=== PATIENT | male | born 1985 | race American Indian/Alaskan Native ===

== ENCOUNTER 2017-07-09 12:46 | Inpatient (IN) | payer OTHER ==
--- NOTE | 2017-07-09 13:04 | Cat Scan Report ---
CT HEAD WITHOUT CONTRAST: HISTORY: Neurological deficit. TECHNIQUE: Sequential 2.5mm CT images. COMPARISON: none. FINDINGS: Cerebral Parenchyma: Within normal limits. Cerebellum: Within normal limits. Brainstem: Within normal limits. Ventricles: Normal. Sella: Normal. Extra-axial spaces: Normal. Basal Cisterns: Normal. Intracranial Hemorrhage: None. Midline Shift: None. Calvarium: Normal. Sinuses: There is moderate mucosal thickening in the left maxillary sinus. The remaining visualized sinuses are adequately aerated. Mastoid Air Cells: Normal. Visualized Orbits: Normal. IMPRESSION: Cranial CT scan within normal limits. Chronic left maxillary sinusitis. These findings were discussed with Dr. Barbour in the emergency department at 1255 hrs.
[2017-07-09 13:15] LABS: Basophils % (Auto) 0.4 % (0.0-1.8); Eosinophils % (Auto) 0.1 % (0.0-4.3); Hematocrit 49.6 % (35.5-45.6); Lymphocytes # (Auto) 0.9 K/mm3 (1.2-5.4); Lymphocytes % (Auto) 10.1 % (13.4-35.0); Mean Corpuscular HGB Conc 34 % (32-34); Mean Corpuscular Hemoglobin 29 pg (28-32); Mean Corpuscular Volume 85 fl (84-94); Monocytes # (Auto) 0.5 K/mm3 (0.0-0.8); Monocytes % (Auto) 6.1 % (0.0-7.3); Platelet Count 265 K/mm3 (140-440); Red Blood Count 5.83 M/mm3 (3.65-5.03); Red Cell Distribution Width 13.8 % (13.2-15.2)
[2017-07-09 13:21] LABS: INR 0.96 (0.87-1.13)
[2017-07-09 13:25] LABS: BUN/Creatinine Ratio 11; Blood Urea Nitrogen 11 mg/dL (9-20); Calcium 9.6 mg/dL (8.4-10.2); Hemolysis Index 41
[2017-07-09] MEDS ORDERED: ZOFRAN ONE (13:26)
[2017-07-09] MEDS ORDERED: ZOFRAN IV ONE (13:30)
--- NOTE | 2017-07-09 13:43 | Emergency Department Report ---
HPI - General Chief Complaint: Neuro Symptoms/Deficit Time Seen by Provider: 07/09/17 12:55 - HPI HPI: The patient is a 31-year-old male with history of hypertension, presents for evaluation of strokelike symptoms. The patient reports onset of left-sided weakness at 6 AM this morning when he awoke to take his child to school, 6 hours and 30 minutes prior to arrival to this emergency department. He states that his weakness has been constant and severe since onset, and associated with headache, moderate to severe, aching in quality, also constant for 6 hours. He admits to some mild paresthesia in the left upper extremity and left leg. The patient denies fever, head injury, neck pain, neck stiffness, blurry vision or hearing changes, smell or taste changes, facial drooping, slurred speech, seizure-like activity, urine or bowel incontinence or retention, or other focal neurological deficit. ED Past Medical Hx - Past Medical History Previous Medical History?: Yes Hx Hypertension: Yes - Surgical History Past Surgical History?: No Additional Surgical History: tonsilectomy - Social History Smoking Status: Never Smoker Substance Use Type: Alcohol - Medications Home Medications: Home Medications Medication Instructions Recorded Confirmed Last Taken Type No Known Home Medications [No 07/09/17 07/09/17 Unknown History Reported Home Medications] ED Review of Systems ROS: Stated complaint: POSS CVA Other details as noted in HPI Constitutional: denies: fever ENT: denies: throat or neck pain Respiratory: denies: cough, shortness of breath Cardiovascular: denies: chest pain Endocrine: denies unexplained weight loss or gain Gastrointestinal: denies: abdominal pain, nausea Genitourinary: denies: dysuria Musculoskeletal: denies: leg swelling Skin: denies: rash Neurological: Reports lateralizing weakness, paresthesia, and headache Hematological/Lymphatic: denies: easy bleeding or easy bruising Psych: denies sadness or hopelessness Physical Exam - Physical Exam Vital Signs: Vital Signs 07/09/17 07/09/17 07/09/17 12:57 13:01 13:13 Temperature 98.9 F Pulse Rate 97 H 103 H Respiratory 16 Rate Blood Pressure 170/65 170/65 O2 Sat by Pulse 100 99 99 Oximetry 07/09/17 13:15 Temperature Pulse Rate 109 H Respiratory 15 Rate Blood Pressure 170/65 O2 Sat by Pulse 97 Oximetry Physical Exam: General: well-nourished, well-developed, no acute distress Head: Normocephalic, atraumatic Eyes: normal scleral, PERRL, EOM intact ENT: Mucous membranes are pink and moist Neck: trachea midline, neck supple, No neck stiffness, no cervical adenopathy Respiratory: Breath sounds equal bilaterally, no wheezing, rales, or rhonchi Cardio: S1 and S2 present, no murmurs, rubs, gallops, capillary refill is brisk Abdomen: Normoactive bowel sounds, soft abdomen, no rigidity, no guarding or rebound tenderness Chest WALL/Back: No tenderness to palpation of the chest wall, no CVA tenderness with percussion Musc: No pitting edema Skin: No rash Neuro: alert oriented x4, normal cognition, speech normal, no facial drooping, no uvula or tongue deviation on protrusion, no deficit with rotation of neck or shoulder shrug, 1+ pronator drift present to the left arm and leg, 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 week and compared to the right, no obvious gross sensation deficit to crude touch, 2+ symmetric reflexes on DTR testing, no coordination deficit with [id number]-[id number] or atgw-du-[id number] testing, Babinski downgoing, romberg negative, patient able to to ambulate without abnormal gait Psych: Normal affect ED Course Vital Signs 07/09/17 07/09/17 07/09/17 12:57 13:01 13:13 Temperature 98.9 F Pulse Rate 97 H 103 H Respiratory 16 Rate Blood Pressure 170/65 170/65 O2 Sat by Pulse 100 99 99 Oximetry 07/09/17 13:15 Temperature Pulse Rate 109 H Respiratory 15 Rate Blood Pressure 170/65 O2 Sat by Pulse 97 Oximetry ED Medical Decision Making - Lab Data Result diagrams: 07/09/17 13:03 07/09/17 13:03 - Medical Decision Making The patient was seen and examined by myself. The patient is placed on a cardiac specialist and continuous pulse ox. On initial evaluation, the patient was found to be in no distress. Evaluation orders were placed. As patient is greater than 6 hours since onset of symptoms, he is not a TPA candidate. The on -call telemetry neurologist Dr. Hartmann evaluated the patient. He agreed that the patient is not a TPA candidate. CTA of the head and neck were obtained and were negative for proximal thrombus potentially amendable to mechanical removal. The on-call neurologist and [facility] was contacted. Dr. Gutiérrez agreed that the patient was not a candidate for mechanical removal. The patient was given aspirin for treatment of his acute stroke. The on-call hospitalist service was contacted. They agreed to admit the patient for further treatment and close monitoring. The ED admit order was placed. The patient was admitted in guarded condition. Critical care attestation.: If time is entered above; I have spent that time in minutes in the direct care of this critically ill patient, excluding procedure time. ED Disposition Clinical Impression: Hypertensive urgency, Dehydration, Acute non intractable tension-type headache CVA (cerebral vascular accident) Qualifiers: CVA mechanism: unspecified Qualified Code(s): I63.9 - Cerebral infarction, unspecified Disposition: -09 OP ADMIT IP TO THIS HOSP Is pt being admited?: Yes Does the pt Need Aspirin: Yes Condition: Serious Time of Disposition: 14:54 - Assessment Assessment Interval: Baseline - Level of Consciousness 1a. Level of Consciousness: alert - LOC Questions 1b. LOC Questions: answers correctly - LOC Command 1c. LOC Commands: performs tasks correctly - Best Gaze 2. Best Gaze: normal - Visual 3. Visual: partial hemianopia - Facial Palsy 4. Facial Palsy: normal symmetrical movement - Motor Arm 5b. Motor Arm Right: no drift 5a. Motor Arm Left: drift - Motor Leg 6a. Motor Leg Left: drift 6b. Motor Leg Right: no drift - Limb Ataxia 7. Limb Ataxia: present 2 limbs - Sensory 8. Sensory: mild/moderate sensory loss - Best Language 9. Best Language: no aphasia - Dysarthria 10. Dysarthria: normal - Extinction and Inattention 11. Extinction/Inattention: visual/tactile inattention - Scoring Total Score: 7 Stroke Severity: Moderate Stroke
[2017-07-09] MEDS ORDERED: BABY ASPIRIN PO ONE (14:51)
[2017-07-09] MEDS ORDERED: NACL 0.9% 500 ML 500 ML IV ONE (14:52)
[2017-07-09] MEDS ORDERED: APRESOLINE IV ONE (14:52)
[2017-07-09] MEDS ORDERED: SODIUM CHLORIDE FLUSH SYRINGE 10 ML IV PRN (15:12)
[2017-07-09] MEDS ORDERED: DULCOLAX PR PRN (15:12)
[2017-07-09] MEDS ORDERED: MILK OF MAGNESIA PO PRN (15:12)
[2017-07-09] MEDS ORDERED: ZOFRAN IV PRN (15:12)
[2017-07-09] MEDS ORDERED: TYLENOL PO PRN (15:12)
[2017-07-09] MEDS ORDERED: PHENERGAN PR PRN (15:12)
[2017-07-09] MEDS ORDERED: REGLAN PO PRN (15:12)
--- NOTE | 2017-07-09 15:12 | History and Physical Report ---
History of Present Illness Chief complaint: confused, cant move his left side History of present illness: 31 YO Male with HTN presents to ED for evaluation. Pt is mildly confused, but is able to provide history. Pt states that he was in his usual state of health at bedsime which was around 2200hrs, but upon waking this morning around [id number] he experienced Left sided weakness, and inablilty to move his left arm and leg. Pt states that his symptoms have persisted since onset. Pt also acknowledges Headache, which is moderate to severe in nature. The patient denies fever, Chills, CP, Palpitations, NVE, Trauma, neck pain, neck stiffness, blurry vision or hearing changes, smell or taste changes, unintentional weight loss, night sweats, productive cough, or recent ill contacts. Pt seen and evaluated in ED and found to have symptoms of acute stroke. Pt admitted to telemetry. Pt mother at bedside. Past History Past Medical History: hypertension Past Surgical History: tonsillectomy Social history: single, lives with family, smoking. denies: alcohol abuse, prescription drug abuse, IV drug use Family history: hypertension Medications and Allergies Allergies Allergy/AdvReac Type Severity Reaction Status Date / Time No Known Allergies Allergy Unverified 01/21/15 11:24 Home Medications Medication Instructions Recorded Confirmed Last Taken Type No Known Home Medications [No 07/09/17 07/09/17 Unknown History Reported Home Medications] Active Meds: Active Medications Sodium Chloride (Nacl 0.9% 500 Ml) 500 mls @ 999 mls/hr IV ONCE ONE Stop: 07/09/17 15:22 Review of Systems Constitutional: no weight loss, no weight gain, no fever, no chills Ears, nose, mouth and throat: no ear pain, no ear discharge, no tinnitis, no decreased hearing, no nose pain, no nasal congestion, no nasal discharge Cardiovascular: no chest pain, no orthopnea, no palpitations, no rapid/ irregular heart beat, no edema, no syncope, no lightheadedness Respiratory: no cough, no cough with sputum, no excessive sputum, no hemoptysis , no shortness of breath Gastrointestinal: no nausea, no vomiting, no diarrhea, no constipation, no change in bowel habits Genitourinary Male: no dysuria, no hematuria, no flank pain, no discharge, no urinary frequency, no urinary hesitancy Rectal: no pain, no incontinence, no bleeding Musculoskeletal: no neck stiffness, no neck pain, no shooting arm pain, no arm numbness/tingling, no low back pain, no shooting leg pain Integumentary: no rash, no pruritis, no redness, no sores, no wounds, no jaundice Neurological: weakness, numbness, headaches, confusion, no head injury, no transient paralysis, no paralysis, no parathesias, no tingling, no seizures, no convulsions, no change in speech, no gait dysfunction Psychiatric: no anxiety, no memory loss, no change in sleep habits, no sleep disturbances, no insomnia, no hypersomnia, no change in appetite Endocrine: no cold intolerance, no heat intolerance, no polyphagia, no excessive thirst, no polydipsia, no polyuria, no nocturia Hematologic/Lymphatic: no easy bruising, no easy bleeding, no lymphadenopathy, no lymphedema Allergic/Immunologic: no urticaria, no allergic rhinitis, no wheezing, no persistent infections, no anaphylaxis Exam - Constitutional Vitals: Temp Pulse Resp BP Pulse Ox 98.9 F 101 H 21 154/95 95 07/09/17 13:13 07/09/17 14:15 07/09/17 14:15 07/09/17 14:15 07/09/17 14:15 General appearance: Present: mild distress - EENT Eyes: Present: PERRL ENT: hearing intact, clear oral mucosa - Neck Neck: Present: supple, normal ROM - Respiratory Respiratory: bilateral: diminished - Cardiovascular Heart Sounds: Present: S1 & S2. Absent: rub, click - Extremities Extremities: pulses symmetrical, No edema Peripheral Pulses: within normal limits - Abdominal General gastrointestinal: Present: soft, non-tender, non-distended, normal bowel sounds Male genitourinary: Present: normal - Rectal Rectal Exam: normal exam-external/orifice - Integumentary Integumentary: Present: clear, dry, clammy - Musculoskeletal Musculoskeletal: left sided weakness - Psychiatric Psychiatric: intact judgment & insight, memory intact, agitated - Neurologic Neurologic: focal deficits, no moves all extremities, no gait normal Results - Labs CBC & Chem 7: 07/09/17 13:03 07/09/17 13:03 Labs: Abnormal lab results 07/09/17 07/09/17 07/09/17 Range/Units 13:02 13:03 13:03 RBC 5.83 H (3.65-5.03) M/mm3 Hgb 17.0 H (11.8-15.2) gm/dl Hct 49.6 H (35.5-45.6) % Lymph % (Auto) 10.1 L (13.4-35.0) % Lymph # 0.9 L (1.2-5.4) K/mm3 Seg Neutrophils % 83.3 H (40.0-70.0) % Thrombin Time (15.1-19.6) Sec. Potassium 5.1 H (3.6-5.0) mmol/L Glucose 120 H (75-100) mg/dL Total Creatine Kinase 1330 H (55-170) units/L 07/09/17 Range/Units 13:05 RBC (3.65-5.03) M/mm3 Hgb (11.8-15.2) gm/dl Hct (35.5-45.6) % Lymph % (Auto) (13.4-35.0) % Lymph # (1.2-5.4) K/mm3 Seg Neutrophils % (40.0-70.0) % Thrombin Time 25.2 H (15.1-19.6) Sec. Potassium (3.6-5.0) mmol/L Glucose (75-100) mg/dL Total Creatine Kinase (55-170) units/L Assessment and Plan - Patient Problems (1) CVA (cerebral vascular accident) Current Visit: Yes Status: Acute Qualifiers: CVA mechanism: unspecified Qualified Code(s): I63.9 - Cerebral infarction, unspecified Plan to address problem: Stroke Protocol: CT Head, MRI Brain, MRA Brain, CTA Head/Neck, Antiplatelet therapy, Echo, EEG, Carotid Doppler, PT/OT/Speech Therapy, Neuro checks, Seizure Precautions, Urine Drug screen (2) Acute non intractable tension-type headache Current Visit: Yes Status: Acute Plan to address problem: Pain Control, CT Head, (3) Hypertensive urgency Current Visit: Yes Status: Acute Plan to address problem: Monitor BP q shift, IV hydralazine prn, supportive care, (4) Rhabdomyolysis Current Visit: Yes Status: Acute Qualifiers: Encounter type: initial encounter Plan to address problem: IVF resuscitation, Serial CK levels, Urine Drug screen, monitor uop q shift, (5) DVT prophylaxis Current Visit: Yes Status: Acute Plan to address problem: SCD to BLE while in bed
--- NOTE | 2017-07-09 15:14 | Cat Scan Report ---
CTA NECK: HISTORY: Stroke, left arm and leg weakness. TECHNIQUE: Helical CT following IV contrast. Sagittal and coronal reformatted images. 3D volume rendering technique. Stenosis was calculated using NASCET criteria using the distal internal carotid arteries standard diameters. FINDINGS: Slightly limited exam with motion artifact at the level of the distal common carotid arteries. The visualized aortic arch, innominate artery and proximal bilateral subclavian arteries are widely patent with less than 20% stenosis. Within the right carotid system: Less than 20% stenosis. Within the left carotid system: Less than 20% stenosis. The cervical vertebral arteries are patent with less than 20% stenosis. IMPRESSION: Unremarkable CTA of the neck.
--- NOTE | 2017-07-09 15:15 | Cat Scan Report ---
CTA HEAD: HISTORY: Stroke, left arm and leg weakness. TECHNIQUE: Helical CT images after IV contrast with 0.625mm reformations. Sagittal and coronal reformats. Rotational MIP images. 3D volume rendering technique. NASCET criteria was utilized. FINDINGS: The arterial structures of the anterior and posterior circulations are patent throughout with less than 20% stenosis. No evidence for large vessel occlusion, dissection or aneurysm. IMPRESSION: Unremarkable CTA head.
[2017-07-09 15:28] LABS: Albumin 4.5 g/dL (3.9-5); Bilirubin,Direct 0.2 mg/dL (0-0.2)
[2017-07-09] MEDS ORDERED: ATIVAN ONE (16:05)
[2017-07-09] MEDS ORDERED: ATIVAN IV ONE ×2 (16:17→17:59)
[2017-07-09] MEDS ORDERED: APRESOLINE IV PRN (16:39)
[2017-07-09] MEDS ORDERED: MORPHINE ONE (17:05)
[2017-07-09 17:11] LABS: Amphetamine Screen,Urine PRESUMPTIVE NEGATIVE; Benzodiazepines Screen,Urine PRESUMPTIVE NEGATIVE; Cannabinoid Screen,Urine PRESUMPTIVE POSITIVE; Cocaine Screen,Urine PRESUMPTIVE NEGATIVE; Methadone Screen,Urine PRESUMPTIVE NEGATIVE; Opiate Screen,Urine PRESUMPTIVE NEGATIVE
[2017-07-09] MEDS ORDERED: MORPHINE IV ONE (17:16)
[2017-07-09] MEDS ORDERED: VITAMIN B-1 100 MG, FOLVITE 1 MG, INFUVITE 10 ML in NACL 0.9% 1000 ML 1,000 ML IV ONE (18:00)
--- NOTE | 2017-07-09 19:34 | Magnetic Resonance Report ---
FINAL REPORT EXAM: MR BRAIN WO CON HISTORY: stroke TECHNIQUE: MRI brain: Axial T1, T2 , FLAIR, diffusion, and gradient echo axial Sagittal T1 PRIORS: None. FINDINGS: The cerebral hemispheres appear normal without focal lesions. The ventricles and sulci appear normal for age. There are no abnormal extra-axial fluid collections. There is no restricted diffusion. There is no evidence of acute intracranial hemorrhage. The brainstem and cerebellum appear normal. The visualized orbits are unremarkable. There is mild mucosal thickening in the bilateral maxillary sinuses greater on the left than the right and in bilateral ethmoid air cells. The intracranial flow voids appear patent except that the right vertebral artery is not seen. IMPRESSION: Normal MRI of the brain without contrast. Right vertebral artery is not seen. Please see report for the MRA performed on the same day
--- NOTE | 2017-07-09 19:44 | Magnetic Resonance Report ---
FINAL REPORT EXAM: MR MRA/MRV HEAD WO CON HISTORY: stroke TECHNIQUE: Magnetic resonance angiogram (MRA) 3-D iurz-ax-[id number] (TOF) volume acquisitionof the [place] with axial source images. Multiple maximum intensity projection (MIP) images constructed. PRIORS: None. FINDINGS: The right vertebral artery is not seen. There is a very small intracranial vessel just above the foramen magnum likely representing a diminutive right vertebral artery terminating as a PICA. There is normal flow within the bilateral internal carotid arteries. There is normal bifurcation into the middle and anterior cerebral arteries. The bilateral anterior, middle and posterior cerebral arteries appear patent. There is no evidence of stenosis or occlusion of the large vessels or branch vessels. There is no evidence of aneurysm. IMPRESSION: It appears as though the right vertebral artery is diminutive and terminates as the PICA. This is the case then it is a normal variation. Otherwise, normal magnetic resonance angiogram of the brain.
[2017-07-09] MEDS: TYLENOL #3 PO PRN (23:37)
[2017-07-10 06:42] LABS: Chol/HDL Ratio 1.77 %
[2017-07-10] MEDS: ASPIRIN PO SCH (09:59)
[2017-07-10] MEDS: TYLENOL #3 PO PRN ×2 (10:00→21:45)
[2017-07-10 10:08] LABS: BUN/Creatinine Ratio 11; Blood Urea Nitrogen 11 mg/dL (9-20); Calcium 9.1 mg/dL (8.4-10.2); Hemolysis Index 22
--- NOTE | 2017-07-10 13:09 | Progress Note ---
Assessment and Plan Possible TIA - Acute CVA ruled out with negative CT head and MRI/MRA of the brain - We'll await for neuro consult - Continue stroke protocol for now, ordered also EEG for possible seizure Tension type headache, improved Hypertensive urgency, will start on BP meds Rhabdomyolysis, we'll trend CPK and started on IV fluid Substance abuse, counseled for cessation DVT prophylaxis, SCD Brief history: 31 YO Male with history of HTN presents to ED with left-sided weakness. Pt states that he was in his usual state of health at bedsime which was around 2200hrs, but upon waking this morning around [id number] he experienced Left sided weakness, and inablilty to move his left arm and leg. Pt states that his symptoms have persisted since onset. Pt seen and evaluated in ED and found to have symptoms of acute stroke. Pt admitted to telemetry with stroke protocol. Radiological test: CT head MRI/MRA of the brain Carotid Doppler and 2-D echo Hospitalist Physical exam: GENERAL: well-developed and well-nourished AAM lying on bed appeared to be in no discomfort. HEENT: Normocephalic. Atraumatic. No conjunctival congestion or icterus. Patient has moist mucous membranes. NECK: Supple. Trachea midline. CHEST/LUNGS: Clear to auscultated bilaterally, breathing nonlabored. No wheezes crackles or rhonchi. HEART/CARDIOVASCULAR: Regular in rate and rhythm. S1 and S2 positive. ABDOMEN: Abdomen is soft, nontender. Patient has normal bowel sounds. SKIN: There is no rash. Warm and dry. NEURO: No focal motor deficit. Follows command. MUSCULOSKELETAL: No joint effusion or tenderness. EXTRIMITY: No edema, no cyanosis or clubbing. PSYCH: Cooperative. Subjective Date of service: 07/10/17 Interval history: Patient seen and examined. Medical records and medication list reviewed. No acute event overnight noted by the RN. Patient denies any chest pain or difficulty breathing. Patient is tolerating diet. Discussed plan of care at bedside with patient. States he still feels some weakness on his left side Objective - Constitutional Vitals: Vital Signs - 12hr 07/10/17 07/10/17 07/10/17 04:09 07:52 09:14 Temperature 98.9 F 98.9 F Pulse Rate 91 H 85 79 Respiratory 20 20 Rate Blood Pressure 150/92 158/103 O2 Sat by Pulse 98 98 Oximetry - Labs CBC & Chem 7: 07/09/17 13:03 07/10/17 09:21 Labs: Abnormal lab results 07/09/17 07/09/17 07/09/17 Range/Units 13:02 13:03 13:03 RBC 5.83 H (3.65-5.03) M/mm3 Hgb 17.0 H (11.8-15.2) gm/dl Hct 49.6 H (35.5-45.6) % Lymph % (Auto) 10.1 L (13.4-35.0) % Lymph # 0.9 L (1.2-5.4) K/mm3 Seg Neutrophils % 83.3 H (40.0-70.0) % Thrombin Time (15.1-19.6) Sec. Potassium 5.1 H (3.6-5.0) mmol/L Glucose 120 H (75-100) mg/dL AST (5-40) units/L Total Creatine Kinase 1330 H (55-170) units/L HDL Cholesterol (40-59) mg/dL 07/09/17 07/09/17 07/10/17 Range/Units 13:05 15:03 05:00 RBC (3.65-5.03) M/mm3 Hgb (11.8-15.2) gm/dl Hct (35.5-45.6) % Lymph % (Auto) (13.4-35.0) % Lymph # (1.2-5.4) K/mm3 Seg Neutrophils % (40.0-70.0) % Thrombin Time 25.2 H (15.1-19.6) Sec. Potassium (3.6-5.0) mmol/L Glucose (75-100) mg/dL AST 44 H (5-40) units/L Total Creatine Kinase 1266 H (55-170) units/L HDL Cholesterol 71 H (40-59) mg/dL 07/10/17 Range/Units 09:21 RBC (3.65-5.03) M/mm3 Hgb (11.8-15.2) gm/dl Hct (35.5-45.6) % Lymph % (Auto) (13.4-35.0) % Lymph # (1.2-5.4) K/mm3 Seg Neutrophils % (40.0-70.0) % Thrombin Time (15.1-19.6) Sec. Potassium (3.6-5.0) mmol/L Glucose (75-100) mg/dL AST (5-40) units/L Total Creatine Kinase 1194 H (55-170) units/L HDL Cholesterol (40-59) mg/dL
--- NOTE | 2017-07-10 15:21 | Magnetic Resonance Report ---
MRA NECK WITH AND WITHOUT CONTRAST HISTORY: Left sided weakness, stroke. TECHNIQUE: [id number] imaging with MIP reformations of the neck is submitted. 3-dimensional MRA following IV contrast. NASCET criteria were utilized. FINDINGS: The bilateral carotid and vertebral systems appear widely patent and free of hemodynamically significant stenosis, aneurysm, or dissection. IMPRESSION: Unremarkable MR angiography of the neck.
[2017-07-10] MEDS: NORVASC PO SCH (21:44)
[2017-07-10] MEDS ORDERED: LOVENOX SUB-Q SCH (22:00)
[2017-07-10] MEDS: NACL 0.9% 1000 ML 1,000 ML IV SCH (22:26)
[2017-07-11] MEDS: NACL 0.9% 1000 ML 1,000 ML IV SCH (06:37)
[2017-07-11] MEDS: NORVASC PO SCH (09:53)
[2017-07-11] MEDS: ASPIRIN PO SCH (09:54)
[2017-07-11 13:19] VITALS: BP 138/103
--- NOTE | 2017-07-11 13:48 | Discharge Summary ---
Providers - Providers Date of Admission: 07/09/17 15:13 Attending physician: MICHELLE GLASS MD 07/09/17 15:13 Consult to Case Management [CONS] Routine Services Needed at Discharge: Physical Therapy Home Health Services Notified:: cm notified Additional Physician Instructions: Home health/home PT Occupational Therapy Evaluate and Treat [CONS] Routine Comment: Reason For Exam: Neuro deficits Physical Therapy Evaluation and Treat [CONS] Routine Comment: Reason For Exam: Neuro deficits Speech Therapy Evaluation and Treat [CONS] Routine Reason For Exam: swallow eval 07/10/17 08:06 Consult to Physician [CONS] Routine Comment: Consulting Provider: JOB BREEN Physician Instructions: Reason For Exam: possible seizure Primary care physician: CLINICAL DATA PROGRAMMER Hospitalization Condition: Stable Hospital course: I discussed with the patient and his mother to give him aspirin and they said they going to buy over the counter aspirin which is cheaper than the prescription. Disposition: DC-01 TO HOME OR SELFCARE Time spent for discharge: 31 minutes - Discharge Diagnoses (1) CVA (cerebral vascular accident) Status: Acute Qualifiers: CVA mechanism: unspecified Qualified Code(s): I63.9 - Cerebral infarction, unspecified (2) Hypertensive urgency Status: Acute (3) Rhabdomyolysis Status: Acute Qualifiers: Encounter type: initial encounter Core Measure Documentation - Palliative Care Palliative Care/ Comfort Measures: Not Applicable - Core Measures Any of the following diagnoses?: none Exam - Constitutional Vitals: Temp Pulse Resp BP Pulse Ox 98.5 F 72 20 138/103 99 07/11/17 12:37 07/11/17 12:37 07/11/17 12:37 07/11/17 12:38 07/11/17 12:37 Plan Activity: advance as tolerated Weight Bearing Status: Full Weight Bearing Diet: low cholesterol Follow up with: PRIMARY CARE, [Primary Care Provider] - 7 Days Prescriptions: AtorvaSTATin [Lipitor] 40 mg PO QHS #90 tablet Acetaminophen/Codeine [Tylenol /Codeine # 3 tab] 1 tab PO Q6H PRN #12 tablet PRN Reason: Pain amLODIPine [Norvasc] 10 mg PO QDAY #90 tablet Other Discharge Orders: Physicial Therapy (Amb) Location: None Selected
== END 2017-07-11 17:40 | disposition home or self-care (01) | DRG 65 ==
LOC: ED 12:46 → 4A 15:13 → UNDODISIN 07-11 17:45
PROVIDERS: ADMIT Internal Medicine; ATTEND Internal Medicine
DX: I63.9 Cerebral infarction, unspecified (principal); M62.82 Rhabdomyolysis; G44.209 Tension-type headache, unspecified, not intractable; I16.0 Hypertensive urgency; E86.0 Dehydration; Z82.49 Family history of ischemic heart disease and other diseases of the circulatory system; Z90.89 Acquired absence of other organs
CPT/HCPCS: 36415; 70450; 70496; 70498; 70544; 70549; 70551; 80048; 80061; 80074; 80307; 80320; 82550; 82962; 83880; 84484; 85025; 85379; 85610; 85670; 85730; 93005; 93010; 93306; 93880; 95819; A9270-GY; A9577; G0480; J0360; J1650; J2060; J2270; J2405; J3411; J7030; J7040; Q9967